=== PATIENT | female | born 1955 | race Caucasian/White ===

== ENCOUNTER 2020-12-24 13:30 | Outpatient (CLI) | payer MEDICAID ==
--- NOTE | 2020-12-24 15:55 | XRAY Report ---
PROCEDURE: Calcaneus RT INDICATIONS: CLOSED NONDISPLACED FRACTURE OF R CALCANEUS TECHNIQUE: Two views of the calcaneus were acquired. COMPARISON: None FINDINGS: Bones: No displaced fracture identified. No suspicious bony lesions. Calcaneal bone spur. Soft tissues: No suspicious calcifications. Achilles tendon appears normal. IMPRESSION: No displaced fracture. No acute osseous lesion. If there persistent symptoms or continued clinical co ncern for pathology, then repeat plain film radiographs (7-10 days) or advanced imaging (CT, MR, bone scan) should be considered for further evaluation. Reviewed by: Marleny Garcia MD, PhD on 12/24/2020 3:54 PM PST Approved by: Marleny Garcia MD, PhD on 12/24/2020 3:54 PM PST Station ID: [id number]
[2020-12-24 20:12] LABS: ALBUMIN 4.5 g/dL (3.2-5.5); ALBUMIN/GLOBULIN RATIO 1.6 (1.0-2.2); BILIRUBIN,TOTAL 0.7 mg/dL (0.2-1.0); CALCIUM 9.1 mg/dL (8.5-10.3); CREATININE 0.6 mg/dL (0.4-1.0); TOTAL PROTEIN 7.3 g/dL (6.7-8.2)
== END 2020-12-24 13:31 | disposition home or self-care (01) ==
LOC: DI.S 13:30
PROVIDERS: ATTEND Podiatrist Foot & Ankle Surgery
DX: Z00.00 Encounter for general adult medical examination without abnormal findings (principal); J44.9 Chronic obstructive pulmonary disease, unspecified; S92.001A Unspecified fracture of right calcaneus, initial encounter for closed fracture
CPT/HCPCS: 36415; 80053

== ENCOUNTER 2020-12-31 12:51 | Outpatient (CLI) | payer MEDICAID | END 2020-12-31 12:52 | disposition home or self-care (01) | LOC: LAB.S 12:51 | PROVIDERS: ATTEND Nurse Practitioner Family | DX: R89.9 Unspecified abnormal finding in specimens from other organs, systems and tissues (principal); J44.9 Chronic obstructive pulmonary disease, unspecified | CPT/HCPCS: 36415; 80051; 81599 ==

== ENCOUNTER 2023-03-12 23:08 | Outpatient (CLI) | payer MEDICARE, MEDICAID | END 2023-03-12 23:09 | disposition critical access hospital (66) | LOC: EMS 23:08 | DX: R06.02 Shortness of breath (principal); R06.2 Wheezing | CPT/HCPCS: A0425; A0427 ==

== ENCOUNTER 2023-03-12 23:48 | Emergency (ER) | payer MEDICARE, MEDICAID ==
[2023-03-13 00:42] LABS: BASOPHILS # (AUTO) 0.1 10^3/uL (0.0-0.1); EOSINOPHILS # (AUTO) 0.8 10^3/uL (0.0-0.7); EOSINOPHILS % (AUTO) 8.7 %; HCT - HEMATOCRIT 43.6 % (37.0-47.0); HGB - HEMOGLOBIN 13.7 g/dL (12.0-16.0); LYMPHOCYTES # (AUTO) 1.9 10^3/uL (1.5-3.5); LYMPHOCYTES % (AUTO) 20.4 %; MEAN CORPUSCULAR HEMOGLOBIN 29.8 pg (27.0-31.0); MEAN CORPUSCULAR HGB CONC 31.4 g/dL (32.0-36.0); MONOCYTES # (AUTO) 0.5 10^3/uL (0.0-1.0); MONOCYTES % (AUTO) 5.8 %; NEUTROPHILS % (AUTO) 63.9 %; PLT - PLATELET COUNT 268 10^3/uL (130-450); RED BLOOD COUNT 4.59 10^6/uL (4.20-5.40); RED CELL DISTRIBUTION WIDTH 13.2 % (12.0-15.0); WHITE BLOOD COUNT 9.4 x10^3/uL (4.8-10.8)
[2023-03-13 00:55] LABS: ALBUMIN 4.2 g/dL (3.2-5.5); ALBUMIN/GLOBULIN RATIO 1.3 (1.0-2.2); BILIRUBIN,TOTAL 0.5 mg/dL (0.2-1.0); CALCIUM 9.2 mg/dL (8.5-10.3); CREATININE 0.7 mg/dL (0.4-1.0); POTASSIUM 3.7 mmol/L (3.5-5.0); TOTAL PROTEIN 7.4 g/dL (6.7-8.2)
--- NOTE | 2023-03-13 01:53 | XRAY Report ---
PROCEDURE: Chest 1 View X-Ray INDICATIONS: Chest pain TECHNIQUE: One view of the chest was acquired. COMPARISON: None. FINDINGS: Surgical changes and devices: None. Lungs and pleura: There is hyperinflation of the lungs with flattening of the hemidiaphragms compati ble with COPD. There are a few linear peripheral opacities in the right upper lung zone and left lowe r lung zone. No pleural effusions or pneumothorax. Mediastinum: Mediastinal contours appear normal. Heart size is normal. Bones and chest wall: No suspicious bony lesions. Overlying soft tissues appear unremarkable. IMPRESSION: 1. Findings compatible COPD. 2. Bilateral peripheral linear opacities suggestive of scarring possibly from prior infection. Consid er further evaluation with CT if clinical concern persists. Reviewed by: Tolu Jackson MD on 03/13/2023 1:52 AM PDT Approved by: Tolu Jackson MD on 03/13/2023 1:52 AM PDT Station ID: [id number]
[2023-03-13 02:27] LABS: B. PARAPERTUSSIS- RESP PCR PAN NOT DETECTED; B. PERTUSSIS- RESP PCR PANEL NOT DETECTED; C. PNEUMONIAE- RESP PCR PANEL NOT DETECTED; CORONAVIRUS 229E-RESP PCR NOT DETECTED; CORONAVIRUS HKU1-RESP PCR NOT DETECTED; CORONAVIRUS NL63-RESP PCR NOT DETECTED; CORONAVIRUS OC43-RESP PCR NOT DETECTED; HUMAN METAPNEUMOVIRUS NOT DETECTED; INFLUENZA A- RESP PCR PANEL NOT DETECTED; INFLUENZA B - RESP PCR PANEL NOT DETECTED; M. PNEUMONIAE- RESP PCR PANEL NOT DETECTED; PARAINFLUENZA VIRUS 1 NOT DETECTED; PARAINFLUENZA VIRUS 2 NOT DETECTED; PARAINFLUENZA VIRUS 3 NOT DETECTED; PARAINFLUENZA VIRUS 4 NOT DETECTED; RHINOVIRUS/ENTEROVIRUS NOT DETECTED; RSV- RESP PCR PANEL NOT DETECTED; SARS-CoV-2 -RESP PCR PANEL NOT DETECTED
--- NOTE | 2023-03-13 03:36 | ED Physician Documentation ---
History of Present Illness - Stated complaint Stated Complaint: CONGESTION, SOA - Chief complaint Chief Complaint: Resp - Additonal information Additional information: Patient is 68-year-old female presenting to the emergency department with chest tightness and shortness of breath. Symptoms ongoing times 3 days. Reports increased cough with congestion. Denies fever. Denies ilya chest pain, palpitations, abdominal pain, nausea, vomiting, diarrhea, constipation. Reports has been using her rescue inhaler at home with minimal relief. Review of Systems Constitutional: denies: Fever Eyes: denies: Loss of vision Ears: denies: Loss of hearing Nose: denies: Rhinorrhea / runny nose Throat: denies: Dental pain / toothache Cardiac: reports: Chest pain / pressure Respiratory: reports: Dyspnea, Cough, Wheezing GI: denies: Abdominal Pain, Nausea, Vomiting : denies: Dysuria PD PAST MEDICAL HISTORY - Present Medications Home Medications: Ambulatory Orders Medication Instructions Recorded Confirmed Albuterol 2.5 mg INH Q4HR PRN #90 ml 03/13/23 Albuterol Sulf [Ventolin Hfa 1 - 2 puffs INH Q4HR PRN #18 gm 03/13/23 Inhaler] predniSONE [Prednisone] 50 mg PO DAILY #5 tablet 03/13/23 - Allergies Allergies/Adverse Reactions: Allergies Allergy/AdvReac Type Severity Reaction Status Date / Time Penicillins Allergy Hives Verified 03/13/23 00:16 Sulfa (Sulfonamide Allergy Anaphylaxis Verified 03/13/23 00:16 Antibiotics) PD ED PE NORMAL - Vitals Vital signs reviewed: Yes (WNL) - General General: Alert and oriented X 3, No acute distress, Well developed/nourished - HEENT HEENT: Atraumatic, PERRL, EOMI, Ears normal, Moist mucous membranes, Pharynx benign - Neck Neck: Supple, no meningeal sign, No bony TTP, No adenopathy, Thyroid normal, No JVD - Cardiac Cardiac: RRR, No murmur, No gallop, No rub, Strong equal pulses - Respiratory Respiratory: No respiratory distress, Clear bilaterally - Abdomen Abdomen: Normal bowel sounds, Non tender - Female Female : Deferred - Rectal Rectal: Deferred - Back Back: No CVA TTP - Extremities Extremities: No deformity - Neuro Neuro: Alert and oriented X 3, emergency department technician 2-12 intact, No motor deficit, No sensory deficit, Normal speech Results - Vitals Vitals: Vital Signs - 24 hr 03/12/23 03/13/23 03/13/23 23:50 00:26 01:09 Temperature 36.9 C Heart Rate 89 91 86 Respiratory 16 13 20 Rate Blood Pressure 168/97 H 127/89 H 132/81 H O2 Saturation 95 96 95 03/13/23 03/13/23 01:38 03:02 Temperature Heart Rate 88 Respiratory 17 Rate Blood Pressure 162/91 H O2 Saturation 96 92 Oxygen O2 Source Room air - EKG (time done) 0026 EKG releavant findings:: EKG personally interpreted by author of this note. Relevant findings are: Sinus rhythm with rate 89 bpm. Normal axis. Normal QRS and QTc intervals. NH interval mildly prolonged at [address] segment elevations. Nonspecific ST and T wave abnormalities throughout. No previous EKG available for comparison. 0122 EKG releavant findings:: EKG personally interpreted by author of this note. Relevant findings are: Sinus rhythm with rate 87 bpm. Normal axis. Normal NH, QRS intervals. QTc borderline at [address] segment elevations. ST abnormalities less evident than previous. - Labs Labs: Laboratory Tests 03/13/23 03/13/23 03/13/23 00:23 00:23 00:23 WBC 9.4 RBC 4.59 Hgb 13.7 Hct 43.6 MCV 95.0 MCH 29.8 MCHC 31.4 L RDW 13.2 Plt Count 268 MPV 10.0 Neut # (Auto) 6.0 Lymph # (Auto) 1.9 Delta # (Auto) 0.5 Eos # (Auto) 0.8 H Baso # (Auto) 0.1 Absolute Nucleated RBC 0.00 Nucleated RBC % 0.0 Sodium 141 Potassium 3.7 Chloride 103 Carbon Dioxide 31 Anion Gap 7.0 BUN 25 H Creatinine 0.7 Estimated GFR (MDRD) 84 L Glucose 147 H Calcium 9.2 Total Bilirubin 0.5 AST 26 ALT 17 Alkaline Phosphatase 62 Troponin I High Sens 16.4 H* Total Protein 7.4 Albumin 4.2 Globulin 3.2 Albumin/Globulin Ratio 1.3 Lipase 34 Nasal Adenovirus (PCR) Nasal B. parapertussis DNA (PCR) Nasal Coronavir 229E PCR Nasal Coronavir HKU1 PCR Nasal Coronavir NL63 PCR Nasal Coronavir OC43 PCR Nasal Enterovir/Rhinovir PCR Nasal Influenza B PCR Nasal Influenza A PCR Nasal Parainfluen 1 PCR Nasal Parainfluen 2 PCR Nasal Parainfluen 3 PCR Nasal Parainfluen 4 PCR Nasal RSV (PCR) Nasal B.pertussis DNA PCR Nasal C.pneumoniae (PCR) Sergio Human Metapneumo PCR Nasal M.pneumoniae (PCR) Nasal SARS-CoV-2 (PCR) 03/13/23 03/13/23 01:19 01:49 WBC RBC Hgb Hct MCV MCH MCHC RDW Plt Count MPV Neut # (Auto) Lymph # (Auto) Delta # (Auto) Eos # (Auto) Baso # (Auto) Absolute Nucleated RBC Nucleated RBC % Sodium Potassium Chloride Carbon Dioxide Anion Gap BUN Creatinine Estimated GFR (MDRD) Glucose Calcium Total Bilirubin AST ALT Alkaline Phosphatase Troponin I High Sens 22.2 H* Total Protein Albumin Globulin Albumin/Globulin Ratio Lipase Nasal Adenovirus (PCR) NOT DETECTED Nasal B. parapertussis DNA (PCR) NOT DETECTED Nasal Coronavir 229E PCR NOT DETECTED Nasal Coronavir HKU1 PCR NOT DETECTED Nasal Coronavir NL63 PCR NOT DETECTED Nasal Coronavir OC43 PCR NOT DETECTED Nasal Enterovir/Rhinovir PCR NOT DETECTED Nasal Influenza B PCR NOT DETECTED Nasal Influenza A PCR NOT DETECTED Nasal Parainfluen 1 PCR NOT DETECTED Nasal Parainfluen 2 PCR NOT DETECTED Nasal Parainfluen 3 PCR NOT DETECTED Nasal Parainfluen 4 PCR NOT DETECTED Nasal RSV (PCR) NOT DETECTED Nasal B.pertussis DNA PCR NOT DETECTED Nasal C.pneumoniae (PCR) NOT DETECTED Sergio Human Metapneumo PCR NOT DETECTED Nasal M.pneumoniae (PCR) NOT DETECTED Nasal SARS-CoV-2 (PCR) NOT DETECTED PD Medical Decision Making - ED course Complexity details: reviewed old records, reviewed results, re-evaluated patient, considered differential, d/w patient ED course: Patient is 68-year-old female presenting to the emergency department with 3-day history cough, congestion, shortness of breath and chest tightness. Afebrile, hemodynamically stable on arrival to the emergency department. EMS had reported hypoxic respiratory failure requiring supplemental oxygen however patient tolerating breathing on room air with appropriate oxygen saturations while in the ED. He did have some diffuse wheeze on arrival and breathing treatments ordered. Had received methylprednisolone prior to arrival. Initial EKG as outlined above demonstrated some nonspecific ST and T wave abnormalities as well as moderate motion artifact. Of concern patient did have a very minimal elevation in high-sensitivity troponin at 16.4. Other labs obtained were generally within normal limits or nonactionable. Chest x-ray was nonacute. Repeat troponin was uptrending at22.2. This does represent a mild positive delta.Repeat EKG at that time was negative for indications of acute cardiac ischemia or dysrhythmia and patient reported that her chest tightness was largely resolved and that she was not and had not been having any ilya chest pain. Patient tolerated ambulatory trial well. I had a long and detailed discussion with the patient as well as with the patient's who is present at bedside. This included the EKG findings as well asThe mild elevation in high-sensitivity troponin. We discussed options in the emergency department including continued monitoring in the ED versus a ttempted transfer as patient has not had cardiac risk stratification testing performed in the past. After explaining the likely delays in logistics that would be associated with this patient reported that she felt comfortable going home with the intent to follow-up with a porter bath As well as establish yourself with a new primary care doctor. We did discuss the risks involved in this including the potential risk for major cardiac event and she verbalized understanding of this as well. I will discharge with refills for her rescue inhaler, nebulizer treatments as well as oral prednisone to take for the next few days to help with her breathing. Otherwise clear return precautions were given prior to discharge.d Departure - Departure Disposition: 01 Home, Self Care Clinical Impression: Moderate COPD (chronic obstructive pulmonary disease), Elevated troponin Instructions: COPD Dc Prescriptions: Albuterol 2.5 mg INH Q4HR PRN #90 ml PRN Reason: Wheezing Albuterol Sulf [Ventolin Hfa Inhaler] 1 - 2 puffs INH Q4HR PRN #18 gm PRN Reason: Shortness Of Air/Wheezing predniSONE [Prednisone] 50 mg PO DAILY #5 tablet Comments: Thank you for allowing us to care for you today at [facility]. Today in the emergency department you were evaluated for any possible life- threatening medical emergency. As we discussed, your lab work did show a very minimal elevation in an enzyme known as troponin, this can sometimes indicate injury or dysfunction of the heart. While it is very reassuring that your symptoms have improved while you are here in the emergency department this finding is concerning as it could indicate underlying coronary artery disease or other equally potentially serious medical conditions. I know we discussed continued boarding/hospitalization and transfer while you were here in the emergency department and I do understand your decision to go home however it is very important that if it anytime you develop any new or worsening symptoms, Particularly if you develop chest pain, worsening shortness of breath or heart palpitations that you return immediately to the emergency department for reevaluation. In the meantime I do recommend following up with your porter bath as well as continue to work towards establishing yourself with a new primary care doctor. I have sent some prescriptions including nebulizer treatments, a refill for your rescue inhaler and some oral steroid to your preferred pharmacy, [facility] in [place]. Please use these as directed. Again if it anytime you develop new or worsening symptoms please return.
[2023-03-13 03:54] VITALS: BP 131/90
== END 2023-03-13 04:04 | disposition home or self-care (01) ==
LOC: EDUNIT# → ED 23:48
DX: J44.9 Chronic obstructive pulmonary disease, unspecified (principal); R74.8 Abnormal levels of other serum enzymes; Z20.822 Contact with and (suspected) exposure to COVID-19
CPT/HCPCS: 36415; 80053; 83690; 84484; 85025; 87633; 93005; 99284